=== PATIENT | male | born 1995 | race Two or more races ===

== ENCOUNTER 2018-08-12 15:56 | Emergency (ER) | payer SELFPAY, OTHER | END 2018-08-12 19:48 | disposition left against medical advice (07) | LOC: FTE 15:56 | DX: Z53.21 Procedure and treatment not carried out due to patient leaving prior to being seen by health care provider (principal) ==

== ENCOUNTER 2019-03-03 10:19 | Emergency (ER) | payer OTHER | END 2019-03-03 11:19 | disposition home or self-care (01) | LOC: FTE 10:19 | DX: S99.911A Unspecified injury of right ankle, initial encounter (principal); F17.210 Nicotine dependence, cigarettes, uncomplicated; X50.0XXA Overexertion from strenuous movement or load, initial encounter; Y92.89 Other specified places as the place of occurrence of the external cause | CPT/HCPCS: 73610; 73610-RT; 99283-25 ==